=== PATIENT | female | born 2000 | race Caucasian/White ===

== ENCOUNTER 2020-02-04 06:15 | Inpatient (IN) | payer OTHER ==
[2020-02-04] MEDS ORDERED: ELECTROLYTE-148 SOLN 1,000 ML IV SCH (07:00)
[2020-02-04 07:10] LABS: BASO % 0.7 % (0-2.0); EOS % 1.8 % (0-4.5); HEMATOCRIT 33.7 % (32.4-45.2); HEMOGLOBIN 11.6 GM/dL (10.7-15.3); LYMPH % 32.3 % (8-40); MCHC 34.4 g/dl (32.0-36.0); MEAN CELL VOLUME 84.3 fl (80-96); MEAN PLT VOLUME 9.9 fl (7.5-11.1); MONO % 7.6 % (3.8-10.2); NEUT % 57.6 % (42.8-82.8); PLATELET COUNT 169 K/MM3 (134-434); RDW 13.7 % (11.6-15.6); WHITE BLOOD COUNT 9.4 K/mm3 (4.0-10.0)
--- NOTE | 2020-02-04 07:11 | HP ---
Past Medical History - Primary Care Physician PCP:: Dayday Parra - Admission Chief Complaint: 19yo P0 with at EGA 39w1d admitted for C/S due to fetus in breech presentation. History of Present Illness: followed for suspected IUGR Breech confirmed today by bedside sono History Source: Patient, Medical Record Limitations to Obtaining History: No Limitations - Past Medical History GEOSPATIAL TECHNICIAN: No: Alzheimer's, CVA, Dementia, Migraine, Multiple Sclerosis, Peripheral Neuropathy, Parkinson's, Seizure, Syncope, TIA, Vertigo, Other Cardiovascular: No: AFIB, Aneurysm, Aortic Insufficiency, Aortic Stenosis, CAD, CHF, Deep Vein Thrombosis, HTN, Hyperlipdemia, OH, Mitral Insufficiency, Mitral Stenosis, Murmur, Pulmonary Hypertension, Other Pulmonary: No: Asthma, Bronchitis, Cancer, COPD, O2 Dependent, Pneumonia, Previously Intubated, Pulmonary Embolus, Pulmonary Fibrosis, Sleep Apnea, Other Gastrointestinal: No: Ascites, Cancer, Constipation, Crohn's Disease, Diverticulitis, Diverticulosis, Esophageal Varices, Gastritis, GERD, GI Bleed, Hemorrhoids, Hiatal Hernia, Inflamatory Bowel Disease, Irritable Bowel Disease, Pancreatitis, Peptic Ulcer Disease, Ulcerative Colitis, Other Hepatobiliary: No: Cirrhosis, Cholelithiasis, Cholecystitis, Choledoch olithiasis, Hepatitis A, Hepatitis B, Hepatitis C, Other Renal/: No: Renal Failure, Renal Inusuff, BPH, Cancer, Hematuria, Hemodialysis, Neurogenic Bladder, Renal Calculi, UTI, Other Reproductive: No: Ectopic , Endometriosis, Fibroids, PID, Polycystic Ovary Syndrome, Postmenopausal, Other ...: 1 ...Para: 0 Heme/Onc: No: Anemia, B12 Deficiency, Bleeding Disorder, Cancer, Current Chemotherapy, Current Radiation Therapy, Hemochromatosis, Hypercoaguable State, Myeloproliferative Synd, Sickle Cell Disease, Sickle Cell Trait, Thrombocytopenia, Other Infectious Disease: No: AIDS, C-Diff, Herpes Zoster, HIV, MRSA, STD's, Tuberculosis, VREF, Other Psych: No: Addictions, Anxiety, Bipolar, Depression, Panic, Psychosis, Schizophrenia, Other Musculoskeletal: No: Bursitis, Chronic low back pain, Hemiparesis, Hemiplegia, Osteoarthritis, Paraplegia, Other Rheumatology: No: Fibromyalgia, Gout, Lupus, Rheumatoid Arthritis, Sarcoidosis, Vasculitis, Other ENT: No: Allergic Rhinitis, Sinusitis, Other Endocrine: No: [place]'s Disease, [place]'s Disease, Diabetes Insipidus, Diabetes Mellitus, Hyperparathyroidism, Hyperthyroidism, Hypothyroidism, Osteopenia, SIADH, Other Dermatology: No: Basal Cell, Cellulitis, Eczema, Melanoma, Psoriasis, Squamous Cell, Other - Past Surgical History Past Surgical History: Yes: None Hx Myomectomy: No Hx Transabdominal Cerclage: No - Smoking History Smoking history: Never smoked Have you smoked in the past 12 months: No - Alcohol/Substance Use Hx Alcohol Use: No History of Substance Use: reports: None - Social History Usual Living Arrangement: Yes: With Significant Other Do you think of yourself as: Straight/Heterosexual ADL: Independent 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 History of Recent Travel: No Home Medications - Allergies Allergies/Adverse Reactions: Allergies Allergy/AdvReac Type Severity Reaction Status Date / Time No Known Allergies Allergy Verified 02/04/20 07:11 Family Medical History Family History: Unremarkable Review of Systems - Review of Systems Constitutional: reports: No Symptoms HENT: reports: No Symptoms Neck: reports: No Symptoms Cardiovascular: reports: No Symptoms Respiratory: reports: No Symptoms Gastrointestinal: reports: No Symptoms Genitourinary: reports: No Symptoms Breasts: reports: No Symptoms Reported Musculoskeletal: reports: No Symptoms Integumentary: reports: No Symptoms Neurological: reports: No Symptoms Endocrine: reports: No Symptoms Hematology/Lymphatic: reports: No Symptoms Psychiatric: reports: No Symptoms Pain Intensity: 0 Physical Exam - Maternity Constitutional: Yes: Well Nourished, No Distress, Calm Eyes: Yes: WNL, Conjunctiva Clear, EOM Intact HENT: Yes: WNL, Atraumatic, Normocephalic Neck: Yes: WNL, Supple, Trachea Midline Cardiovascular: Yes: WNL, Regular Rate and Rhythm Lungs: Clear to auscultation, Normal air movement - Abdominal Exam/OB Fundal Height: 39 Number of Fetuses: Single Presentation: Breech Contractions: No Heart Rate (range): 130 Heart Rate Location: Midline Category: I Accelerations: Uniform Decelerations: None - Vaginal Exam/OB Vaginal Bleediing: No Speculum Exam: No Dilatation (cm): 0 Effacement (%): 0 Amniotic Membrane Status: Intact Presentation: Vertex/Position Station: -4 - Physical Exam Musculoskeletal: Yes: WNL Extremities: Yes: WNL Integumentary: Yes: WNL Deep Tendon Reflex Grade: Normal +2 ...Motor Strength: WNL Psychiatric: Yes: WNL, Alert, Oriented Hemorrhage Risk Assessment - Risk Factors Medium Risk Factors: Yes: None High Risk Factors: Yes: None Risk Score: 1 Risk Level: Medium Risk Imaging - Results Ultrasound: Image Reviewed Other: Other (Bedside US showed breech presentation) Assessment/Plan 19yo P0 with at EGA 39w1d admitted for C/S due to fetus in breech presentation. The pt declined ECV. We discussed the risks and benefits of C/S at length, including but not limited to scarring, pain, bleeding, infection, injury to underlying organs and structures, need for additional surgery to repair/treat any problems or complications, complications/injuries, etc. The pt verbalized her understanding and requested to proceed with surgery. The pt is aware that all surgeries have risks and no guarantees can be provided.
[2020-02-04 07:24] LABS: INR 0.92 (0.83-1.09); PROTHROMBIN TIME (PATIENT) 10.9 SEC (9.7-13.0)
[2020-02-04] MEDS ORDERED: morphine SULFATE/PF 0.5 MG/ML (2cc Syringe - QUVA) ONE (07:25)
[2020-02-04 07:27] LABS: ACTIVATED PTT 28.7 SECONDS (25.2-36.5)
[2020-02-04] MEDS ORDERED: ePHEDrine SULFATE 50 MG/1 ML AMPULE ONE (07:40)
[2020-02-04] MEDS ORDERED: PHENYLEPHRINE HCL 10 MG/1 ML SINGLE DOSE VIAL ONE (07:41)
[2020-02-04] MEDS ORDERED: ceFAZolin SODIUM 1 GM VIAL ONE (07:43)
[2020-02-04] MEDS ORDERED: OXYTOCIN 20 UNITS in 0.9% NS 20 UNIT/1,000 ML INFUS.BAG IV ONE ×2 (07:54→08:39)
[2020-02-04 08:00] LABS: BLOOD UREA NITROGEN 8.7 mg/dL (7-18); CALCIUM 8.3 mg/dL (8.5-10.1); CREATININE 0.5 mg/dL (0.55-1.3); POTASSIUM 4.2 mmol/L (3.5-5.1)
[2020-02-04 08:13] VITALS: BMI 30.9
[2020-02-04] MEDS ORDERED: ONDANSETRON 4 MG/2 ML VIAL IVPUSH PRN (08:13)
[2020-02-04] MEDS ORDERED: morphine SULFATE/PF 0.5 MG/ML (2cc Syringe - QUVA) EP ONE (08:13)
[2020-02-04] MEDS ORDERED: BENZOCAINE 28 GM HEMORRHOIDAL OINTMENT TP PRN (08:52)
[2020-02-04] MEDS ORDERED: WITCH HAZEL 50% (TUCKS) 40 PAD/JAR PAD TP PRN (08:52)
[2020-02-04] MEDS ORDERED: SENNOSIDES/DOCUSATE COMBO (SENNA PLUS) TABLET (UD) PO PRN (08:52)
[2020-02-04] MEDS ORDERED: IBUPROFEN 800 MG/8 ML IJ IVPB PRN (08:52)
[2020-02-04] MEDS ORDERED: oxyCODONE HCL 5 MG TABLET PO PRN (08:52)
[2020-02-04] MEDS ORDERED: BENZOCAINE 20% 57 GM BOTTLE TP PRN (08:52)
[2020-02-04] MEDS ORDERED: METHYLERGONOVINE MALEATE 0.2 MG/1 ML AMP IM PRN (08:52)
--- NOTE | 2020-02-04 08:59 | OP ---
Operative Note - Note: Operative Date: 02/04/20 Pre-Operative Diagnosis: at EGA 39w1d. Fetus in breech presentation Operation: Primary LT C/S Findings: Live baby girl in double footling breech presentation, tight nuchal cord x 2, no meconium in amniotic fluid. Normal uterus, tubes, ovaries. 8-9. Baby's wt 6lb 9oz Post-Operative Diagnosis: Same as Pre-op Surgeon: Dayday Parra Supervisor [employer]: Manuel Eaton Anesthesiologist/AUTOMATED ACCESS SYSTEMS TECHNICIAN: Carmenza Mena MD Anesthesia: Spinal Specimens Removed: Placenta Estimated Blood Loss (mls): 600 Drains & Tubes with Location: Vines Cath Drains, Volume Out (mls): 700 Blood Volume Replaced (mls): 0 Fluid Volume Replaced (mls): 2,000 Operative Report Dictated: Yes
[2020-02-04] MEDS ORDERED: OXYTOCIN 20 UNITS in 0.9% NS 20 UNIT/1,000 ML INFUS.BAG IV SCH (09:00)
[2020-02-04] MEDS: PRENATAL VITAMINS W/ FOLIC ACID TABLET (FP) PO SCH (10:04)
--- NOTE | 2020-02-04 10:49 | OP ---
DATE OF OPERATION: 02/04/2020 PREOPERATIVE DIAGNOSIS: at estimated gestational age of 39 weeks and 1 day, fetus in double footling breech presentation. POSTOPERATIVE DIAGNOSIS: at estimated gestational age of 39 weeks and 1 day, fetus in double footling breech presentation. PROCEDURE: Primary low transverse section via Pfannenstiel skin incision. SURGEON: Dayday Parra MD RELIABILITY MANAGER: MALENA Doyle ANESTHESIOLOGIST: Carmenza Mena MD ANESTHESIA: Spinal. COMPLICATIONS: None. ESTIMATED BLOOD LOSS: 600 mL. INTRAVENOUS FLUIDS: 2000 mL. URINE OUTPUT: Clear urine, 700 mL, at the end of the procedure. PATHOLOGY: Placenta. FINDINGS: Live baby girl in double footling breech presentation. Tight nuchal cord wrapped around the neck twice. No meconium in amniotic fluid. Normal uterus, tubes, ovaries. Apgars 8 and 9. Baby's weight 6 pounds 9 ounces. DESCRIPTION OF PROCEDURE: The patient was met preoperatively. Risks, benefits, and alternatives of surgery were discussed in detail. The consent form was reviewed. The patient verbalized her understanding. The patient requested to proceed with the surgery. The patient was brought to the OR with the IV running. She was placed on the surgical table in the sitting position. The spinal anesthesia was achieved without difficulty. The patient was placed in a supine position with a leftward tilt. A Vines was inserted and left to drain to gravity. The patient was prepped and draped in the usual sterile fashion. A timeout was conducted as per standard protocol. The surgeons then proceeded with the operation. A Pfannenstiel skin incision was made approximately 2 cm above the pubic symphysis. The incision was taken down to the level of fascia. The fascia was incised in the midline. The incision was extended bilaterally using Resendiz scissors. The fascia was then dissected from the rectus muscles superiorly and inferiorly. The rectus muscles were bluntly in the midline. The parietal peritoneum was identified and entered sharply. The peritoneal incision was extended superiorly and inferiorly using Metzenbaum scissors. The bladder peritoneum was incised over the lower uterine segment. The bladder was then dissected away from the lower uterine segment using sharp dissection. The bladder was reflected downwards using a Coleen retractor. The uterus was incised transversely in the lower uterine segment. The incision was then extended bilaterally using bandage scissors. The baby was delivered from double footling breech presentation without complications. A tight nuchal cord was noted to be wrapped around the baby's neck twice. The nuchal cord was released. The umbilical cord was clamped and cut. The baby was crying spontaneously and was handed to the awaiting toll bridge attendant. The placenta was then extracted complications. The uterus was cleared of all clots and debris using laparotomy laps. The uterine incision was repaired using a 0 Biosyn suture with a running locking stitch. Good hemostasis was confirmed. The uterine incision was then imbricated using a secondary layer of closure with a 0 Biosyn suture. Once again, good hemostasis was confirmed. The bladder peritoneum was reapproximated using a 0 Biosyn suture. The operative site was irrigated using copious amounts of normal saline. Once the saline was aspirated, good hemostasis was confirmed. The abdominal peritoneum was closed using a 2-0 chromic suture with a running stitch. The rectus muscles were approximated using several interrupted 2-0 chromic sutures. The fascia was closed using a 0 Vicryl suture with a running stitch. The Lamont fascia and adipose tissues were reapproximated using several interrupted 0 Vicryl sutures. The skin was closed using a 4-0 Biosyn suture with a subcutaneous stitch. Sponge, lap, and needle counts were correct. The patient tolerated the procedure well and was transferred to recovery room in stable condition and awake. Jacky DE [id number]
[2020-02-04] MEDS: SIMETHICONE 80 MG TAB.CHEW (FP) PO PRN (20:55)
[2020-02-04] MEDS: ACETAMINOPHEN 325 MG TABLET (FP) PO PRN (20:55)
[2020-02-04] MEDS: IBUPROFEN 600 MG TABLET (FP) PO PRN (20:55)
[2020-02-05] MEDS: ACETAMINOPHEN 325 MG TABLET (FP) PO PRN ×4 (04:50→23:28)
[2020-02-05] MEDS: SIMETHICONE 80 MG TAB.CHEW (FP) PO PRN ×4 (04:50→23:28)
[2020-02-05] MEDS: IBUPROFEN 600 MG TABLET (FP) PO PRN ×4 (04:52→23:29)
[2020-02-05 06:51] LABS: BASO % 0.8 % (0-2.0); EOS % 1.8 % (0-4.5); HEMATOCRIT 33.6 % (32.4-45.2); HEMOGLOBIN 11.2 GM/dL (10.7-15.3); LYMPH % 25.9 % (8-40); MCH 28.4 pg (25.7-33.7); MCHC 33.4 g/dl (32.0-36.0); MEAN PLT VOLUME 10.3 fl (7.5-11.1); MONO % 7.2 % (3.8-10.2); NEUT % 64.3 % (42.8-82.8); PLATELET COUNT 163 K/MM3 (134-434); RBC 3.96 M/mm3 (3.60-5.2); WHITE BLOOD COUNT 11.5 K/mm3 (4.0-10.0)
--- NOTE | 2020-02-05 08:21 | PN ---
Progress Note (short form) - Note Progress Note: 19F s/p C/S + duramorph. no anesthetic comps. good result anesthetic care.
[2020-02-05] MEDS ORDERED: BISACODYL 10 MG SUPP.RECT RC PRN (08:52)
[2020-02-05] MEDS: PRENATAL VITAMINS W/ FOLIC ACID TABLET (FP) PO SCH (09:47)
[2020-02-05] MEDS: ENOXAPARIN NA (PORCINE) 40 MG/0.4 ML DISP.SYRIN SQ SCH (09:49)
--- NOTE | 2020-02-05 10:10 | PN ---
Post Progress Note - Subjective Subjective: Patient without acute complaints. Reports tolerating oral intake without nausea or vomiting. Ambulating without dizziness. Denies fevers or chills. Pain well controlled with oral pain medication. without difficulty. Passing flatus Did not urinate yet, nava d/klarissa Post Day: 1 Type of Delivery: Primary C/S Vital Signs: Vital Signs Temperature 98.4 F 02/05/20 06:00 Pulse Rate 77 02/05/20 06:00 Respiratory Rate 18 02/05/20 06:00 Blood Pressure 104/53 L 02/05/20 06:00 O2 Sat by Pulse Oximetry (%) 100 02/04/20 18:00 Breast Exam: Yes: Soft Uterus: Yes: Fundus Firm Incision: Yes: Dressing dry and intact Abdomen/GI: Yes: Abdomen soft, Passing flatus Lochia: Yes: Rubra Lochia, amount: Small Extremities: Yes: Calves non-tender Perineum: Yes: Intact Activity: Ambulating - Labs Labs: CBC WBC 11.5 K/mm3 (4.0-10.0) H 02/05/20 05:02 RBC 3.96 M/mm3 (3.60-5.2) 02/05/20 05:02 Hgb 11.2 GM/dL (10.7-15.3) 02/05/20 05:02 Hct 33.6 % (32.4-45.2) 02/05/20 05:02 MCV 85.0 fl (80-96) 02/05/20 05:02 MCH 28.4 pg (25.7-33.7) 02/05/20 05:02 MCHC 33.4 g/dl (32.0-36.0) 02/05/20 05:02 RDW 14.0 % (11.6-15.6) 02/05/20 05:02 Plt Count 163 K/MM3 (134-434) 02/05/20 05:02 MPV 10.3 fl (7.5-11.1) 02/05/20 05:02 Absolute Neuts (auto) 7.4 K/mm3 (1.5-8.0) 02/05/20 05:02 Neutrophils % 64.3 % (42.8-82.8) 02/05/20 05:02 Lymphocytes % 25.9 % (8-40) 02/05/20 05:02 Monocytes % 7.2 % (3.8-10.2) 02/05/20 05:02 Eosinophils % 1.8 % (0-4.5) 02/05/20 05:02 Basophils % 0.8 % (0-2.0) 02/05/20 05:02 Nucleated RBC % 0 % (0-0) 02/05/20 05:02 Assessment/Plan 19yo P1 now, s/p 1' c/section VSS, Afebrile Doing well Rh pos no need for RhoGam Encourage ambulation
[2020-02-06] MEDS: IBUPROFEN 600 MG TABLET (FP) PO PRN ×4 (08:05→23:19)
[2020-02-06] MEDS: SIMETHICONE 80 MG TAB.CHEW (FP) PO PRN ×4 (08:05→23:22)
[2020-02-06] MEDS: ACETAMINOPHEN 325 MG TABLET (FP) PO PRN ×4 (08:06→23:18)
[2020-02-06] MEDS: ENOXAPARIN NA (PORCINE) 40 MG/0.4 ML DISP.SYRIN SQ SCH (11:50)
[2020-02-06] MEDS: PRENATAL VITAMINS W/ FOLIC ACID TABLET (FP) PO SCH (11:51)
--- NOTE | 2020-02-06 13:40 | PN ---
Post Progress Note - Subjective Subjective: Patient without acute complaints. Reports tolerating oral intake without nausea or vomiting. Ambulating without dizziness. Denies fevers or chills. Pain well controlled with oral pain medication. without difficulty. Passing flatus, had BM Post Day: 2 Type of Delivery: Primary C/S Vital Signs: Vital Signs Temperature 97.5 F L 02/06/20 09:33 Pulse Rate 76 02/06/20 09:33 Respiratory Rate 20 02/06/20 09:33 Blood Pressure 126/70 02/06/20 09:33 O2 Sat by Pulse Oximetry (%) 100 02/04/20 18:00 Breast Exam: Yes: Soft Uterus: Yes: Fundus Firm Incision: Yes: Sutures intact Abdomen/GI: Yes: Abdomen soft Lochia: Yes: Rubra Lochia, amount: Small Extremities: Yes: Calves non-tender Perineum: Yes: Intact Activity: Ambulating - Labs Labs: CBC WBC 11.5 K/mm3 (4.0-10.0) H 02/05/20 05:02 RBC 3.96 M/mm3 (3.60-5.2) 02/05/20 05:02 Hgb 11.2 GM/dL (10.7-15.3) 02/05/20 05:02 Hct 33.6 % (32.4-45.2) 02/05/20 05:02 MCV 85.0 fl (80-96) 02/05/20 05:02 MCH 28.4 pg (25.7-33.7) 02/05/20 05:02 MCHC 33.4 g/dl (32.0-36.0) 02/05/20 05:02 RDW 14.0 % (11.6-15.6) 02/05/20 05:02 Plt Count 163 K/MM3 (134-434) 02/05/20 05:02 MPV 10.3 fl (7.5-11.1) 02/05/20 05:02 Absolute Neuts (auto) 7.4 K/mm3 (1.5-8.0) 02/05/20 05:02 Neutrophils % 64.3 % (42.8-82.8) 02/05/20 05:02 Lymphocytes % 25.9 % (8-40) 02/05/20 05:02 Monocytes % 7.2 % (3.8-10.2) 02/05/20 05:02 Eosinophils % 1.8 % (0-4.5) 02/05/20 05:02 Basophils % 0.8 % (0-2.0) 02/05/20 05:02 Nucleated RBC % 0 % (0-0) 02/05/20 05:02 Assessment/Plan 19yo P1 now, s/p 1' c/section VSS, Afebrile Doing well Plan to d/c in am
--- NOTE | 2020-02-06 22:48 | DS ---
Physical Exam-EDGER FEEDER Vital Signs: Vital Signs Temperature 97.2 F L 02/06/20 21:33 Pulse Rate 81 02/06/20 21:33 Respiratory Rate 18 02/06/20 21:33 Blood Pressure 125/75 02/06/20 21:33 O2 Sat by Pulse Oximetry (%) 100 02/04/20 18:00 Constitutional: Yes: Well Nourished, No Distress Eyes: Yes: WNL, Conjunctiva Clear HENT: Yes: WNL, Atraumatic, Normocephalic Neck: Yes: WNL, Supple Cardiovascular: Yes: WNL Respiratory: Yes: WNL, Regular, CTA Bilaterally Gastrointestinal: Yes: WNL, Normal Bowel Sounds, Soft Renal/: Yes: WNL Pelvis: Yes: WNL External Genitalia: Yes: Normal ....Post : Yes: Uterus firm, Uterus non-tender Breast(s): Yes: WNL Musculoskeletal: Yes: WNL Extremities: Yes: WNL Integumentary: Yes: WNL Wound/Incision: Yes: Clean/Dry, Well Approximated Neurological: Yes: WNL, Alert, Oriented ...Motor Strength: WNL Psychiatric: Yes: WNL, Alert, Oriented Labs: CBC, BMP 02/05/20 05:02 02/04/20 06:50 Delivery - Delivery Section: Primary Type of Anesthesia: Spinal Episiotomy/Laceration: None EBL (cc): 600 Delivery, Single - Stages of Labor Date of Delivery: 02/04/20 Time of Delivery: 08:01 Time Placenta Delivered: 08:02 - Condition of Administrative Assistant/Shredded Filler Machine Wrapper Layer Present: Yes Name: Donna Deshpande Infant Gender: Female Weight: 6 lb 9 oz Position: Right, SA Total Hours ROM (Hrs/Mins): 2 MIN - 1 Minute Total Score: 8 5 Minutes Total Score: 9 - [place] Feeding Plan Initial Plan: Exclusive throughout hospitalization Discharge Summary Problems reviewed: Yes Reason For Visit: ADMIT C/S Procedures: Principal: Primary c/section Hospital Course: Unremarcable Condition: Good - Instructions Diet, Activity, Other Instructions: Physical activity Resume your normal everyday activity as tolerated no heavy lifting or exercise until seen by your surgeon. You may walk unlimited hellen of and climb stairs. You may resume driving the car when you feel safe and comfortable behind the wheel. No sexual activity as instructed. Wound care If you have a bandage, leave it on, and keep dry for 48-72 hours. After that time discard the outer bandage. If they are tapes on the skin under the out of bandage leave them in place. They will peel off in the next 7 to 10 days. Do Not Peel them off. You may shower the day after surgery. If there are tapes present on the skin, you may shower over them. Diet There are no dietary restrictions. Eat healthy, high-fiber foods. Drink 6 to 8 glasses of liquid each day. This will assist in keeping your bowels are regular. Pain management You may take Tylenol or acetaminophen or Ibuprofen (for example, Motrin, Advil etc.) from my pain prescription medication is ordered should be taken as prescribed for moderate to severe pain. Call MD for any of the following: Severe pain not relieved by medication Fever of 101 or higher Excessive bleeding or drainage on dressing Inability to urinate Disposition: HOME
[2020-02-07 07:38] LABS: BASO % 0.8 % (0-2.0); EOS % 3.3 % (0-4.5); HEMATOCRIT 32.7 % (32.4-45.2); HEMOGLOBIN 11.3 GM/dL (10.7-15.3); LYMPH % 24.7 % (8-40); MCH 29.4 pg (25.7-33.7); MCHC 34.4 g/dl (32.0-36.0); MEAN CELL VOLUME 85.5 fl (80-96); MEAN PLT VOLUME 9.9 fl (7.5-11.1); MONO % 7.2 % (3.8-10.2); PLATELET COUNT 183 K/MM3 (134-434); RBC 3.83 M/mm3 (3.60-5.2); RDW 13.9 % (11.6-15.6); WHITE BLOOD COUNT 10.9 K/mm3 (4.0-10.0)
[2020-02-07] MEDS: IBUPROFEN 600 MG TABLET (FP) PO PRN (07:43)
[2020-02-07] MEDS: SIMETHICONE 80 MG TAB.CHEW (FP) PO PRN (07:43)
[2020-02-07] MEDS: ACETAMINOPHEN 325 MG TABLET (FP) PO PRN (07:44)
[2020-02-07] MEDS: PRENATAL VITAMINS W/ FOLIC ACID TABLET (FP) PO SCH (09:23)
[2020-02-07] MEDS: ENOXAPARIN NA (PORCINE) 40 MG/0.4 ML DISP.SYRIN SQ SCH (09:23)
--- NOTE | 2020-02-07 16:15 | PATH ---
Surgical Pathology Report Patient Name: DORIS MORALEZ Med. Rec. #: [id number] /Age/Gender: 2000 (Age: 19) / F Account: [id number] Location: 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 Specimen(s) Received PLACENTA Clinical History , 39.1 weeks breech presentation, IUGR Final Diagnosis PLACENTA, SECTION: 470 G THIRD TRIMESTER PLACENTA WITH TRIVASCULAR UMBILICAL CORD AND UNREMARKABLE PLACENTAL MEMBRANES. Electronically Signed Charmaine Beckwith M.D. Gross Description The specimen is received fresh labeled placenta and is a 470 gram, 19.0 x 14.5 x 3.0 cm. placenta with attached membranes and umbilical cord. The attached membranes are davies, translucent with focal opacities and insert marginally. The umbilical cord measures 15 cm. in length and averages 1.3 cm. in diameter. The cord inserts eccentrically, 3 cm. to the nearest margin. No true knots or strictures are identified. Cut surface of the umbilical cord reveals 3 vessels. The surface is jay-blue with minimal fibrin deposition and appropriate caliber vessels. The maternal surface is red-brown with focal defects. Sectioning reveals red-brown, spongy parenchyma. No lesions are identified. Programming Director sections are submitted in three cassettes as follows: 1- membrane rolls and umbilical cord; 2-3- full thickness sections of placenta. /02/04/2020 saudi/02/04/2020
[2020-02-07 16:23] VITALS: BP 129/71; PULSE 76; TEMP 98.1
== END 2020-02-07 14:00 | disposition home or self-care (01) | DRG 540 ==
LOC: JLDR 06:15 → J3W 10:15
PROVIDERS: ADMIT Obstetrics & Gynecology; ATTEND Obstetrics & Gynecology
PROC: 10D00Z1 Extraction of Products of Conception, Low, Open Approach (ICD-10-PCS; principal; 2020-02-04)
DX: O32.8XX0 Maternal care for other malpresentation of fetus, not applicable or unspecified (principal); Z3A.39 39 weeks gestation of pregnancy; Z37.0 Single live birth
CPT/HCPCS: 36415; 36600; 80048; 82803; 85025; 85610; 85730; 86593; 86850; 86900; 86901; 87389; 88307-TC